=== PATIENT | male | born 1985 | race Caucasian/White ===

== ENCOUNTER 2019-03-14 22:04 | Emergency (ER) | payer MEDICAID ==
[~2019-03-14] VITALS: Ht 175.3 cm; Wt 80.1 kg
[~2019-03-14 22:04] MED LIST: IBUP-1542 PO; NYST1000 PO
[2019-03-14 22:07] VITALS: Ht 175.3 cm; Wt 80.1 kg
[2019-03-15 01:30] VITALS: BP 118/65; PULSE 73; RESP 16
== END 2019-03-15 01:30 | disposition home or self-care (01) ==
LOC: FTE 22:04 → EDBD 22:04 → FTE 03-15 01:30
DX: K13.79 Other lesions of oral mucosa (principal)
CPT/HCPCS: 82962; Z7502; 99282